=== PATIENT | female | born 1955 | race Caucasian/White ===

== ENCOUNTER 2019-12-15 09:07 | Outpatient (REF) | payer OTHER, SELFPAY ==
[2019-12-15 20:54] LABS: HCT 40.4 % (36.0-46.0); HGB 13.6 g/dL (11.2-15.7); MCH 33.8 pg (27.0-33.0); MCHC 33.7 % (32.0-36.0); MCV 100.5 fL (80-95); MPV 11.2 fL (8.0-11.0); Platelet Count 265 10^3/uL (130-400); RBC 4.02 10^6/uL (3.93-5.22); WBC 5.58 10^3/uL (4.4-10.8)
[2019-12-15 21:13] LABS: ALT 29 U/L (14-59); AST 22 U/L (15-37); Alkaline Phosphatase 60 U/L (46-116); Anion Gap 8.4 mmol/L (3-11); BUN 14 mg/dL (7-18); Bilirubin, Total 0.5 mg/dL (0.2-1.0); CO2 29.6 mmol/L (21.0-32.0); CREATININE 0.78 mg/dL (0.55-1.02); Calcium 9.2 mg/dL (8.5-10.1); Calculated LDL 126 mg/dL (<100); Chloride 104 mmol/L (98-107); Cholesterol 212 mg/dL (<200); Glucose 97 mg/dL (74-106); HDL Cholesterol 68 mg/dL (40-60); Potassium 4.1 mmol/L (3.5-5.1); Sodium 142 mmol/L (136-145); Total Protein 7.1 g/dL (6.4-8.2); Triglyceride 94 mg/dL (<150)
== END 2019-12-15 09:27 ==
LOC: NCHCN 09:07
PROVIDERS: Visit Provider Family Medicine
DX: I10 Essential (primary) hypertension (principal)
CPT/HCPCS: 80053; 80061; 85027

== ENCOUNTER 2019-12-22 12:04 | Outpatient (REF) | payer OTHER, SELFPAY ==
[2019-12-24 10:21] LABS: Varicella IgG Antibody Positive (See Note)
== END 2019-12-22 12:24 ==
LOC: NCHCN 12:04
PROVIDERS: Visit Provider Family Medicine
DX: Z11.59 Encounter for screening for other viral diseases (principal); Z01.84 Encounter for antibody response examination
CPT/HCPCS: 86787

== ENCOUNTER 2022-07-25 16:01 | Outpatient (REF) | payer OTHER, SELFPAY ==
[2022-07-25 16:02] LABS: ALT 30 U/L (14-59); AST 23 U/L (15-37); Albumin 3.9 g/dL (3.4-5.0); Alkaline Phosphatase 68 U/L (46-116); Anion Gap 8.8 mmol/L (3-11); BUN 16 mg/dL (7-18); Bilirubin, Total 0.3 mg/dL (0.2-1.0); CO2 26.2 mmol/L (21.0-32.0); CREATININE 0.8 mg/dL (0.55-1.02); Calcium 8.6 mg/dL (8.5-10.1); Calculated LDL 149 mg/dL (<100); Chloride 106 mmol/L (98-107); Cholesterol 248 mg/dL (<200); Estimated GFR 81.72 (mL/min/1.73m2); Glucose 90 mg/dL (74-106); HDL Cholesterol 65 mg/dL (40-60); Potassium 4.5 mmol/L (3.5-5.1); Sodium 141 mmol/L (136-145); Total Protein 7.2 g/dL (6.4-8.2); Triglyceride 174 mg/dL (<150)
[2022-07-25 17:52] LABS: Vitamin D 25 Total 31.9 ng/mL (30-100)
== END 2022-07-25 16:02 | disposition home or self-care (01) ==
LOC: NCHCN 16:01
PROVIDERS: PCP Family Medicine; Visit Provider Family Medicine
DX: I10 Essential (primary) hypertension (principal); F41.8 Other specified anxiety disorders; Z79.899 Other long term (current) drug therapy
CPT/HCPCS: 80053; 80061; 82306

== ENCOUNTER 2022-10-30 09:03 | Outpatient (REF) | payer OTHER, SELFPAY ==
[2022-10-30 15:17] LABS: Calculated LDL 54 mg/dL (<100); Cholesterol 135 mg/dL (<200); HDL Cholesterol 64 mg/dL (40-60); Triglyceride 88 mg/dL (<150)
== END 2022-10-30 09:04 | disposition home or self-care (01) ==
LOC: NCHCN 09:03
PROVIDERS: PCP Family Medicine; Visit Provider Family Medicine
DX: E78.5 Hyperlipidemia, unspecified (principal)
CPT/HCPCS: 80061